=== PATIENT | male | born 1960 | race Caucasian/White ===

== ENCOUNTER 2016-12-20 21:34 | Inpatient (IN) | payer OTHER ==
[~2016-12-20] VITALS: Ht 177.8 cm; Wt 95.9 kg
[2016-12-20] MEDS ORDERED: DICLOFENAC SODI75 MG PO (23:53)
[2016-12-20] MEDS ORDERED: OMEPRAZOLE40 M1 PO (23:53)
[2016-12-20] MEDS ORDERED: LOSARTAN POTAS100 MG PO (23:53)
[2016-12-20] MEDS ORDERED: DIAZEPAM5 MG PO (23:54)
[2016-12-21 00:10] LABS: HEMATOCRIT 38.7 % (38.0-50.0); MCH 33.9 PG (29.0-34.0); MCHC 35.4 G/DL (30.0-36.0); MCV 95.8 FL (86-99); MEAN PLAT.VOLUME 9.8 uM^3 (9.0-12.4); PLATELET COUNT 192 K/uL (156-360); RBC DIS.WIDTH-CV 11.7 % (11.8-14.6); RBC DIS.WIDTH-SD 41.2 % (39-53); RED BLOOD COUNT 4.04 M/uL (4.00-5.50); WHITE BLOOD COUNT 8.1 K/uL (4.1-10.2)
[2016-12-21 00:21] LABS: CHLORIDE 106 mEq/L (99-109); POTASSIUM 3.8 mEq/L (3.7-5.4); SODIUM 139 mEq/L (136-147)
[2016-12-21 00:23] LABS: GLUCOSE 89 mg/dL (70-99)
[2016-12-21 00:24] LABS: ANION GAP 13 MEQ/L (2-14)
[2016-12-21 00:27] LABS: GFR ESTIMATE (CALCULATED) > 59 mL/min/
[2016-12-21 00:28] LABS: UREA NITROGEN (BUN) 15 mg/dL (9-23)
[2016-12-21 02:44] VITALS: BP 153/86
[2016-12-21 04:51] VITALS: BP 153/89
[2016-12-21 08:02] VITALS: BP 177/87
[2016-12-21 12:16] VITALS: BP 138/85
[2016-12-21 19:45] VITALS: BP 144/79
[2016-12-22 00:03] VITALS: BP 111/65
[2016-12-22 04:20] VITALS: BP 118/72
[2016-12-22 06:04] LABS: EOSINOPHIL (%) 2.5 % (0-5); EOSINOPHIL COUNT 0.2 K/uL (0-0.3); HEMATOCRIT 35.9 % (38.0-50.0); IMMATURE GRANULOCYTE (%) 0.3 % (0.0-0.7); INSTRUMENT ABS NEUTROPHIL CT 2.9 K/uL; LYMPHOCYTE COUNT 2.7 K/uL (1.0-2.8); MCH 33.5 PG (29.0-34.0); MCV 98.6 FL (86-99); MONOCYTE (%) 11.8 % (3-12); MONOCYTE COUNT 0.8 K/uL (0-0.8); NEUTROPHIL (%) 43.7 % (45-76); NEUTROPHIL COUNT 2.9 K/uL (1.8-6.4); PLATELET COUNT 166 K/uL (156-360); RBC DIS.WIDTH-CV 11.9 % (11.8-14.6); RBC DIS.WIDTH-SD 43.4 % (39-53); RED BLOOD COUNT 3.64 M/uL (4.00-5.50); WHITE BLOOD COUNT 6.7 K/uL (4.1-10.2)
[2016-12-22 06:36] LABS: ANION GAP 9 MEQ/L (2-14); CHLORIDE 104 MEQ/L (99-109); GFR ESTIMATE (CALCULATED) > 59 mL/min/; GLUCOSE 88 mg/dL (70-99); POTASSIUM 3.8 MEQ/L (3.7-5.4); SAMPLE HEMOLYSIS CHECK 0; SAMPLE ICTERIC CHECK 0; SAMPLE LIPEMIA CHECK 0; SODIUM 137 MEQ/L (136-147); UREA NITROGEN (BUN) 17 mg/dL (9-23)
[2016-12-22 07:51] VITALS: BP 122/74
[2016-12-22 11:57] VITALS: BP 136/90
[2016-12-22 16:21] VITALS: BP 119/73
[2016-12-22 23:25] VITALS: BP 141/86
[2016-12-23 05:05] LABS: EOSINOPHIL (%) 3.4 % (0-5); EOSINOPHIL COUNT 0.2 K/uL (0-0.3); HEMATOCRIT 36.1 % (38.0-50.0); IMMATURE GRANULOCYTE (%) 0.5 % (0.0-0.7); INSTRUMENT ABS NEUTROPHIL CT 2.6 K/uL; LYMPHOCYTE COUNT 2.2 K/uL (1.0-2.8); MCH 33.8 PG (29.0-34.0); MCHC 34.1 G/DL (30.0-36.0); MCV 99.2 FL (86-99); MEAN PLAT.VOLUME 10.3 uM^3 (9.0-12.4); MONOCYTE (%) 12.5 % (3-12); MONOCYTE COUNT 0.7 K/uL (0-0.8); NEUTROPHIL (%) 44.7 % (45-76); NEUTROPHIL COUNT 2.6 K/uL (1.8-6.4); PLATELET COUNT 165 K/uL (156-360); RBC DIS.WIDTH-CV 11.6 % (11.8-14.6); RBC DIS.WIDTH-SD 42.4 % (39-53); RED BLOOD COUNT 3.64 M/uL (4.00-5.50); WHITE BLOOD COUNT 5.8 K/uL (4.1-10.2)
[2016-12-23 05:15] LABS: CHLORIDE 105 mEq/L (99-109); SODIUM 136 mEq/L (136-147)
[2016-12-23 05:19] LABS: ANION GAP 9 MEQ/L (2-14)
[2016-12-23 05:21] LABS: GFR ESTIMATE (CALCULATED) > 59 mL/min/
[2016-12-23 05:22] LABS: UREA NITROGEN (BUN) 14 mg/dL (9-23)
[2016-12-23 05:24] LABS: GLUCOSE 112 mg/dL (70-99)
[2016-12-23 08:30] VITALS: BP 135/70
[2016-12-23 23:31] VITALS: BP 139/77
[2016-12-24 07:18] VITALS: BP 119/66
[2016-12-24 15:06] VITALS: BP 130/72
[2016-12-24 23:20] VITALS: BP 133/86
[2016-12-25 05:50] LABS: EOSINOPHIL (%) 4.7 % (0-5); EOSINOPHIL COUNT 0.3 K/uL (0-0.3); HEMATOCRIT 32.1 % (38.0-50.0); IMMATURE GRANULOCYTE (%) 0.3 % (0.0-0.7); INSTRUMENT ABS NEUTROPHIL CT 3.1 K/uL; LYMPHOCYTE COUNT 2.1 K/uL (1.0-2.8); MCHC 34.9 G/DL (30.0-36.0); MCV 100.3 FL (86-99); MEAN PLAT.VOLUME 10.5 uM^3 (9.0-12.4); MONOCYTE (%) 12.3 % (3-12); MONOCYTE COUNT 0.8 K/uL (0-0.8); NEUTROPHIL (%) 49.4 % (45-76); NEUTROPHIL COUNT 3.1 K/uL (1.8-6.4); PLATELET COUNT 174 K/uL (156-360); RBC DIS.WIDTH-CV 11.5 % (11.8-14.6); RBC DIS.WIDTH-SD 42.1 % (39-53); WHITE BLOOD COUNT 6.3 K/uL (4.1-10.2)
[2016-12-25 06:14] LABS: ANION GAP 10 MEQ/L (2-14); CHLORIDE 103 MEQ/L (99-109); GFR ESTIMATE (CALCULATED) > 59 mL/min/; GLUCOSE 95 mg/dL (70-99); POTASSIUM 3.8 MEQ/L (3.7-5.4); SAMPLE HEMOLYSIS CHECK 0; SAMPLE ICTERIC CHECK 0; SAMPLE LIPEMIA CHECK 0; SODIUM 138 MEQ/L (136-147); UREA NITROGEN (BUN) 13 mg/dL (9-23)
[2016-12-25 08:05] VITALS: BP 145/89
[2016-12-25] MEDS ORDERED: ENDOCET 5-3251 EACH PO (10:06)
[2016-12-25] MEDS ORDERED: DOCUSATE SODIU100 MG PO (10:06)
[2016-12-25] MEDS ORDERED: OXYCONTIN15 MG PO (10:06)
[2016-12-25] MEDS ORDERED: GABAPENTIN300 MG PO (10:06)
[2016-12-25] MEDS ORDERED: AUGMENTIN875 MG PO (10:12)
== END 2016-12-25 11:10 | disposition home or self-care (01) | DRG 41 ==
LOC: EME 21:34 → 3EAST 12-21 01:10 → EDOF 12-21 01:10 → 3EAST 12-21 02:08
PROVIDERS: Emergency Medicine; Hospitalist; Physician Assistant
DX: S64.491A Injury of digital nerve of left index finger, initial encounter (principal); S62.325B Displaced fracture of shaft of fourth metacarpal bone, left hand, initial encounter for open fracture; S61.412A Laceration without foreign body of left hand, initial encounter; W54.0XXA Bitten by dog, initial encounter; I10 Essential (primary) hypertension; F17.210 Nicotine dependence, cigarettes, uncomplicated; Z80.7 Family history of other malignant neoplasms of lymphoid, hematopoietic and related tissues; Z82.49 Family history of ischemic heart disease and other diseases of the circulatory system; Y92.009 Unspecified place in unspecified non-institutional (private) residence as the place of occurrence of the external cause
CPT/HCPCS: 73130; 80048; 80069; 85025; 85027; 99281; 99284; J0295; J0690; J1170; J1650; J2175; J2250; J2270; J2405; J3010; J7050; J7120

== ENCOUNTER → 2017-08-29 | Outpatient (CLI) | payer OTHER ==
[~2017-08-29] MED LIST: AUGMENTIN875 MG PO; DIAZEPAM5 MG PO; DICLOFENAC SODI75 MG PO; DOCUSATE SODIU100 MG PO; ENDOCET 5-3251 EACH PO; GABAPENTIN300 MG PO; LOSARTAN POTAS100 MG PO; OMEPRAZOLE40 M1 PO; OXYCONTIN15 MG PO
== END | disposition home or self-care (01) ==
DX: M16.11 Unilateral primary osteoarthritis, right hip (principal); R26.2 Difficulty in walking, not elsewhere classified; M25.551 Pain in right hip; M25.651 Stiffness of right hip, not elsewhere classified; M62.81 Muscle weakness (generalized); Z74.1 Need for assistance with personal care
CPT/HCPCS: 97161 GP; 97165 GO; 97530 GP; 97535 GO

== ENCOUNTER 2017-09-17 21:11 | Inpatient (IN) | payer OTHER ==
[~2017-09-17] VITALS: Ht 177.8 cm; Wt 95.3 kg
[~2017-09-17 21:11] MED LIST changes: +COZAAR100 MG PO; +MOTRIN IB200 MG PO; +SYSTANE ULTRA 015 ML BOTH EYES; +VALIUM5 MG PO
[2017-09-18 11:15] VITALS: BP 114/66
[2017-09-18 17:20] LABS: HEMATOCRIT 40.6 % (38.0-50.0); HEMOGLOBIN 13.9 G/DL (12.5-16.6); MCH 33.8 PG (29.0-34.0); MCHC 34.2 G/DL (30.0-36.0); MCV 98.8 FL (86-99); RBC DIS.WIDTH-CV 11.3 % (11.8-14.6); RBC DIS.WIDTH-SD 41.2 % (39-53); RED BLOOD COUNT 4.11 M/uL (4.00-5.50); WHITE BLOOD COUNT 8.5 K/uL (4.1-10.2)
[2017-09-18 17:56] LABS: PLATELET COUNT 92 K/uL (156-360)
[2017-09-18 18:42] VITALS: BP 161/87
[2017-09-18 20:25] VITALS: BP 140/83
[2017-09-19 00:16] VITALS: BP 123/80
[2017-09-19 04:15] VITALS: BP 123/67
[2017-09-19 06:08] LABS: HEMATOCRIT 35.4 % (38.0-50.0); HEMOGLOBIN 12.2 G/DL (12.5-16.6); MCV 96.2 FL (86-99)
[2017-09-19 06:34] LABS: CHLORIDE 105 MEQ/L (99-109); GFR ESTIMATE (CALCULATED) > 59 mL/min/ (58.99-99999); GLUCOSE 113 mg/dL (70-99); POTASSIUM 4.3 MEQ/L (3.7-5.4); SODIUM 136 MEQ/L (136-147); UREA NITROGEN (BUN) 14 mg/dL (9-23)
[2017-09-19 08:14] VITALS: BP 120/72
[2017-09-19] MEDS ORDERED: SENNA PLUS TAB1 EACH PO (08:43)
[2017-09-19] MEDS ORDERED: LOVENOX40 MG/0.4 SC (08:44)
[2017-09-19] MEDS ORDERED: ENDOCET 5-3251 EACH PO (08:44)
[2017-09-19] MEDS ORDERED: OXYCONTIN10 MG PO (08:44)
[2017-09-19 11:41] VITALS: BP 129/67
== END 2017-09-19 14:01 | disposition home health service (06) | DRG 470 ==
LOC: ENRESERV 21:11 → 2SOUTH 09-18 08:26 → 3WEST 09-18 10:52 → 2SOUTH 09-18 10:52 → 3WEST 09-18 10:52 → 2SOUTH 09-18 12:19 → 3WEST 09-18 18:22
PROVIDERS: Orthopaedic Surgery
PROC: 0SR902A Replacement of Right Hip Joint with Metal on Polyethylene Synthetic Substitute, Uncemented, Open Approach (ICD-10-PCS; principal; 2017-09-18)
DX: M16.11 Unilateral primary osteoarthritis, right hip (principal); I10 Essential (primary) hypertension; F17.210 Nicotine dependence, cigarettes, uncomplicated
CPT/HCPCS: 73501; 73502; 76000; 80048; 85014; 85018; 85027; 97530 GO; J0131; J0330; J0690; J1100; J1170; J1650; J2175; J2405; J2710; J3010; J7030; J7050